=== PATIENT | female | born 1975 | race Caucasian/White ===

== ENCOUNTER 2022-01-14 07:40 | Emergency (ER) | payer OTHER ==
[~2022-01-14] VITALS: Ht 170.2 cm; Wt 73.5 kg
[2022-01-14] MEDS ORDERED: TRAZODONE HCL100 MG PO (07:48)
[2022-01-14] MEDS ORDERED: CELEXA10 MG PO (07:48)
[2022-01-14] MEDS ORDERED: OXYCODONE HCL5 MG PO (08:36)
[2022-01-14] MEDS ORDERED: PREDNISONE20 MG PO (08:36)
== END 2022-01-14 08:50 | disposition home or self-care (01) ==
LOC: ED 07:40
DX: S39.012A Strain of muscle, fascia and tendon of lower back, initial encounter (principal); Z88.5 Allergy status to narcotic agent; Z88.6 Allergy status to analgesic agent; Z79.899 Other long term (current) drug therapy; X58.XXXA Exposure to other specified factors, initial encounter
CPT/HCPCS: 96374; 96375; 99283-25; J1100; J1885

== ENCOUNTER 2023-09-20 13:29 | Emergency (ER) | payer OTHER ==
[~2023-09-20] VITALS: Ht 170.2 cm; Wt 73.5 kg
[~2023-09-20 13:29] MED LIST: CELEXA10 MG PO; OXYCODONE HCL5 MG PO; PREDNISONE20 MG PO; TRAZODONE HCL100 MG PO
[2023-09-20] MEDS ORDERED: NAPROSYN500 MG PO (15:22)
[2023-09-20] MEDS ORDERED: ATIVAN1 MG PO (15:22)
[2023-09-20 15:41] VITALS: BP 106/58
== END 2023-09-20 15:45 | disposition home or self-care (01) ==
LOC: ED 13:29
DX: M43.6 Torticollis (principal); Z88.5 Allergy status to narcotic agent; Z88.8 Allergy status to other drugs, medicaments and biological substances; Z79.899 Other long term (current) drug therapy
CPT/HCPCS: 72125